=== PATIENT | female | born 1930 | race Caucasian/White ===

== ENCOUNTER 2016-10-13 10:23 | Emergency (ER) | payer MEDICARE, OTHER ==
[~2016-10-13] VITALS: Ht 162.6 cm; Wt 64.5 kg
[2016-10-13 10:28] VITALS: BP 147/86; TEMP 98.7
[2016-10-13] MEDS ORDERED: COUMADIN 5MG5 MG/TAB PO (10:32)
[2016-10-13] MEDS ORDERED: FLEXERIL 1010 MG/TAB PO (12:24)
[2016-10-13 12:36] VITALS: PULSE 82
== END 2016-10-13 12:37 | disposition home or self-care (01) ==
LOC: COL.ER 10:23
DX: S76.012A Strain of muscle, fascia and tendon of left hip, initial encounter (principal); Z79.01 Long term (current) use of anticoagulants; Z96.649 Presence of unspecified artificial hip joint; W01.0XXA Fall on same level from slipping, tripping and stumbling without subsequent striking against object, initial encounter